=== PATIENT | female | born 1945 | race Caucasian/White ===

== ENCOUNTER → 2017-06-10 | Outpatient (CLI) | payer MEDICARE, OTHER ==
[~2017-06-10] MED LIST: BUPIVACAINE MPF 0.25% 10 ML VIAL. ONE; IOHEXOL 300 MG/ML 50 ML VIAL. ONE; LIDOCAINE 1% PF 30 ML VIAL. ONE; methylPREDNISolone ACETATE 40 MG/ML VIAL. ONE
== END | disposition home or self-care (01) ==
LOC: SURG 13:33
PROVIDERS: ATTEND Anesthesiology
DX: M46.1 Sacroiliitis, not elsewhere classified (principal); M19.91 Primary osteoarthritis, unspecified site; K21.9 Gastro-esophageal reflux disease without esophagitis; Z98.890 Other specified postprocedural states
CPT/HCPCS: G0260; J1030; J2001; J3490; Q9967

== ENCOUNTER → 2018-10-29 | Outpatient (CLI) | payer MEDICARE, OTHER ==
--- NOTE | 2018-10-30 08:55 | RAD ---
Chest, PA and Lateral: Technique: PA and lateral views of the chest were obtained. History: Productive cough. Comparison: None. Findings: The heart size appear within normal limits. Minimal bibasilar lung airspace opacities.. The pleural margins are clear. Spinal stimulator lead projects in the midthoracic spine level. Impression: Minimal bibasilar lung opacities likely interstitial infiltrates or atelectasis.. Electronically signed by: Cl Singh MD (10/30/2018 8:52 AM) [id number]
== END | disposition home or self-care (01) ==
LOC: DXRAD 17:26
PROVIDERS: ATTEND Registered Nurse
DX: R05 Cough (principal); R91.8 Other nonspecific abnormal finding of lung field
CPT/HCPCS: 71046

== ENCOUNTER → 2019-01-20 | Outpatient (CLI) | payer MEDICARE ==
--- NOTE | 2019-01-20 13:35 | RAD ---
Thyroid ultrasound, 01/20/2019: HISTORY: Neck mass The right lobe of the gland measures 4.8 x 2.0 x 1.6 cm while the left lobe of the gland measures 5.6 x 1.2 x 0.9 cm. There are several tiny subcentimeter lesions in the left lobe which probably represent a combination of simple and colloid cysts. There is a 5.1 x 3.8 x 2.9 cm solid mass in the lower neck on the right which cannot be from the lower pole the right lobe of the thyroid gland. It probably arises from the thyroid gland, however, that cannot be stated with certainty. Its margins appear smooth. No internal calcifications are evident. IMPRESSION: Solid right lower neck mass which probably arises from the right thyroid lobe. CT scanning is suggested for better delineation of this process. Ultimately, ultrasound-guided biopsy will probably be indicated. Electronically signed by: Fabian Everett MD (01/20/2019 1:32 PM) [facility]
== END | disposition home or self-care (01) ==
LOC: US 10:45
PROVIDERS: ATTEND Registered Nurse
DX: R22.1 Localized swelling, mass and lump, neck (principal)
CPT/HCPCS: 76536

== ENCOUNTER → 2019-07-28 | Outpatient (CLI) | payer MEDICARE, OTHER ==
--- NOTE | 2019-07-28 12:46 | RAD ---
EXAM: Dual energy x-ray absorptiometry (DEXA). HISTORY: Postmenopausal female presents for osteoporosis screening. COMPARISON: 02/02/2008. TECHNIQUE: Dual energy x-ray absorptiometry of the lumbar spine and right hip was performed. Calculation of bone mineral density based on standard deviations above or below the expected young adult normal value (T-score) was completed. FINDINGS: The average bone mineral density in the 1st through 4th lumbar vertebrae is 1.752 g/cmxcm, corresponding with a T-score of 4.8. There has been a 2.3% increase in density of the lumbar spine compared to the prior study. The average total bone mineral density in the right hip is 0.763 g/cmxcm, corresponding with a T-score of -1.6. There has been a 9.4% decrease in density of the right hip compared to the prior study. IMPRESSION: 1. Osteopenia measured at the right hip. 2. Normal bone mineral density measured at the lumbar spine. Note: Definitions established by the World Health Organization: 1. Normal: T-score is -1.0 or above. 2. Osteopenia: T-score is between -1.0 and -2.5 . 3. Osteoporosis: T-score is -2.5 or below. Electronically signed by: Florecita Rudd MD (07/28/2019 12:42 PM) [place] [id number]
--- NOTE | 2019-07-28 15:18 | RAD ---
CHEST PA LATERAL Clinical indications: Persistent cough. COMPARISON: October 29, 2018. Findings: Small right middle lobe infiltrate or atelectasis is seen. Left lung field is clear. No pleural effusion or pneumothorax is seen. Small hiatal hernia is evident. The heart size, pulmonary vasculature, mediastinum and both shelton are otherwise unremarkable. Scoliosis is seen. Impression: Right middle lobe lung infiltrate or atelectasis. Small hiatal hernia. Electronically signed by: Paul Gan MD (07/28/2019 3:15 PM) [facility]
--- NOTE | 2019-07-28 15:27 | RAD ---
EXAM: Abdomen sonogram. HISTORY: Elevated alkaline phosphatase. TECHNIQUE: Sonographic imaging of the abdomen was performed. COMPARISON: None. FINDINGS: The liver is normal in size. No focal hepatic lesion is seen. The common bile duct is normal in caliber. The gallbladder is unremarkable. The right kidney measures 8.6 cm [id number]. There is a 1.2 cm exophytic cyst within the right kidney. The pancreas is unremarkable. The aorta and inferior vena cava are unremarkable. IMPRESSION: 1. Small simple appearing right renal cyst. 2. Otherwise, unremarkable abdomen sonogram. Electronically signed by: Florecita Rudd MD (07/28/2019 3:24 PM) [id number]
== END | disposition home or self-care (01) ==
LOC: US 09:31
PROVIDERS: ATTEND Registered Nurse
DX: N28.1 Cyst of kidney, acquired (principal); K44.9 Diaphragmatic hernia without obstruction or gangrene; M41.84 Other forms of scoliosis, thoracic region; M85.88 Other specified disorders of bone density and structure, other site; Z78.0 Asymptomatic menopausal state
CPT/HCPCS: 71046; 76705; 77080

== ENCOUNTER → 2019-10-13 | Outpatient (CLI) | payer MEDICARE, OTHER ==
--- NOTE | 2019-10-13 15:05 | RAD ---
L-spine 3 views INDICATION: Back pain and hip pain FINDINGS: AP, lateral and coned-down lateral views of the lumbar spine show 5 lumbar type vertebrae in reversal of normal lordosis and subtle retrolisthesis of L4 on L5 and anterolisthesis of L5 on S1. The AP view shows rightward convexity scoliotic curvature of the lumbar spine with apex at L2 1 Zeng angle of 19 degrees as measured from the superior endplate of L1 to the superior endplate of L5. The bones are demineralized but no acute fracture or aggressive appearing osseous lesions identified. There is marked disc space narrowing throughout the lumbar spine with relative sparing at L4-L5 where anterior disc space widening is present. This could reflect relative preservation of the anterior disc space rather than pathologic widening of the disc space. The combination of disc degenerative change and facet hypertrophy results in variable bony foraminal stenosis most conspicuous at L4-L5 and L5-S1 levels. Soft tissues demonstrate presence of a left neurostimulator with generator in the left posterior paraspinal soft tissues and leads extending cephalad into the thoracic spine and beyond the [id number]. Visualized pelvis is unremarkable. IMPRESSION: Multilevel lumbar spinal degenerative spondylosis with dextroscoliosis and reversal of normal lumbar lordosis likely resulting in varying degrees of foraminal stenosis on possible surgical stenosis which would be better evaluated if clinically warranted with myelographic technique on CT. PROCEDURE: HIP RIGHT 2V WITH PELVIS, LUMBAR SPINE 2-3V STUDY DATE: 10/13/2019 CLINICAL INDICATION / HISTORY: Right hip pain. No known injury.. TECHNIQUE: AP and frog-leg lateral views of the right hip along with an AP view of the pelvis were obtained. COMPARISON: L-spine x-rays of the same day FINDINGS: The osseous structures are normally mineralized. There is normal bony alignment present in the pelvis with the femoral heads well-seated within the acetabuli. There is no evidence of acute fracture or dislocation identified. The overlying soft tissues are grossly unremarkable. Incidental degenerative changes in the lumbar spine and spinal stimulator generator in the left posterior paraspinal soft tissues noted. IMPRESSION: Unremarkable examination of the right hip. Electronically signed by: Amanuel Cordero MD (10/13/2019 3:03 PM) [id number]
== END | disposition home or self-care (01) ==
LOC: PMG 10:38
PROVIDERS: ATTEND Registered Nurse
DX: M47.816 Spondylosis without myelopathy or radiculopathy, lumbar region (principal); M41.86 Other forms of scoliosis, lumbar region; M48.07 Spinal stenosis, lumbosacral region
CPT/HCPCS: 72100; 73502

== ENCOUNTER → 2019-12-14 | Outpatient (CLI) | payer MEDICARE, OTHER ==
--- NOTE | 2019-12-14 11:04 | RAD ---
EXAM: Lumbar spine CT without contrast. HISTORY: Lower back pain. TECHNIQUE: Computed tomographic images of the lumbar spine were obtained without contrast. Multiplanar reformatting was performed. *One or more of the following individualized dose reduction techniques were utilized for this examination: 1. Automated exposure control. 2. Adjustment of the mA and/or kV according to patient size. 3. Use of iterative reconstruction technique. COMPARISON: None. FINDINGS: There is moderate lumbar dextroscoliosis centered at L2. There is slight rightward lateral translation of L2 on L3 and L3 on L4. There is mild retrolisthesis of L2 on L3 and L3 on L4 and L4 and L5. There is grade 1 anterolisthesis of L5 on S1, measuring 5 mm with associated bilateral pars interarticularis defects. There is degenerative endplate remodeling with disc space narrowing, osteophytosis and Schmorl's node formation primarily along the left aspect of L1-L2 and bilaterally at L3-L4. No acute fracture is seen. There is a catheter or lead extending into the dorsal aspect of the central canal at L1-L2. This extends cephalad beyond the [id number]. There is a moderate hiatal hernia. There is basilar atelectasis. There is a 2.2 cm slightly hyperdense lesion along the anterior lower mid zone of the left kidney. There is colonic diverticulosis. The sacroiliac joints are intact. At L1-L2, there is a a left lateral predominant disc bulge and endplate osteophytosis. There is moderate left facet arthropathy. There is mild right and moderate to severe left foraminal stenosis. There is suspected narrowing of the left lateral recess. At L2-L3, there is a left lateral predominant disc bulge and endplate osteophytosis. There is mild left facet arthropathy. There is mild retrolisthesis. There is severe left foraminal stenosis. There is narrowing of the left lateral recess. At L3-L4, there is a diffuse disc bulge and endplate osteophytosis. There is mild retrolisthesis. There is moderate right and severe left foraminal stenosis. At L4-L5, there is a disc bulge and endplate remodeling. There is severe facet arthropathy. There is retrolisthesis. There is moderate right foraminal stenosis. At L5-S1, there is a diffuse disc bulge and endplate osteophytosis. There is grade 1 anterolisthesis with bilateral pars defects. There is severe right and mild left foraminal stenosis. IMPRESSION: 1. Multilevel degenerative change throughout the lumbar spine, described in detail above. This is associated with mild right and moderate to severe left foraminal stenosis at L1-L2, severe left foraminal stenosis at L2-L3, moderate right and severe left foraminal stenosis at L3-L4, moderate right foraminal stenosis at L4-L5, and severe right and mild left foraminal stenosis at L5-S1. 2. Lumbar sclerosis and multilevel listhesis, including grade 1 anterolisthesis with associated pars interarticularis defects at L5-S1. 3. 2.1 cm slightly hyperdense lesion within the left kidney. This may be a hemorrhagic cyst or solid neoplasm. Correlate with a renal sonogram or a renal protocol CT or MRI. Electronically signed by: Florecita Rudd MD (12/14/2019 11:01 AM) [id number]
== END | disposition home or self-care (01) ==
LOC: CT 10:24
PROVIDERS: ATTEND Registered Nurse
DX: M47.816 Spondylosis without myelopathy or radiculopathy, lumbar region (principal); M51.46 Schmorl's nodes, lumbar region; K44.9 Diaphragmatic hernia without obstruction or gangrene; K57.30 Diverticulosis of large intestine without perforation or abscess without bleeding; M48.07 Spinal stenosis, lumbosacral region
CPT/HCPCS: 72131

== ENCOUNTER → 2019-12-28 | Outpatient (CLI) | payer MEDICARE, OTHER ==
--- NOTE | 2019-12-28 11:59 | RAD ---
EXAM: RENAL COMPLETE BILATERAL 12/28/2019 11:00 AM INDICATION: Left renal lesion. COMPARISON: CT lumbar spine 12/14/2019 TECHNIQUE: Grayscale and color Doppler ultrasound images of the kidneys and bladder. FINDINGS: The right kidney measures 9.2 x 4.2 x 3.7 cm. The left kidney measures 9.0 x 4.0 x 4.3 cm. In the medial aspect of the left kidney, there is a 1.9 x 1.7 x 1.7 cm anechoic exophytic cyst with through transmission. There may be a small amount of internal debris within the cyst. No internal vascularity. There is no solid renal mass identified. In the right kidney, there is a 1.1 x 1.2 x 1.1 cm exophytic anechoic simple cyst with through transmission and no vascularity. There is normal cortical thickness and echogenicity bilaterally. No hydronephrosis. Urinary bladder is normal. Bilateral ureteral jets are visualized. Inferior vena cava is patent at the level of the liver. Abdominal aorta is normal in caliber. IMPRESSION: 1.9 cm simple or minimally complicated exophytic cyst in the mid left kidney. This most likely corresponds with the abnormality seen on recent CT. There is no solid renal mass visualized. Electronically signed by: Bryanna Flood MD (12/28/2019 11:56 AM) [id number]
== END | disposition home or self-care (01) ==
LOC: US 10:33
PROVIDERS: ATTEND Physician Assistant
DX: N28.1 Cyst of kidney, acquired (principal)
CPT/HCPCS: 76770

== ENCOUNTER → 2020-02-15 | Outpatient (CLI) | payer MEDICARE, OTHER ==
--- NOTE | 2020-02-15 16:15 | RAD ---
THYROID ULTRASOUND History: Reason: NON TOXIC SINGLE NODULE / Spl. Instructions: / History: Comparison: January 20, 2019. Technique: Multiple grayscale and color Doppler images of the thyroid gland were obtained. Findings: Prior right thyroidectomy. Left thyroid lobe: 4.6 x 1.7 x 1.2 cm. Homogeneous echotexture. Isthmus: 0.3 cm. Small left thyroid colloid cysts. TI-RADS 1. Unchanged compared to prior. ACR Thyroid Imaging, Reporting And Data System (TI-RADS): White Paper Of The ACR TI-RADS Committee. Journal of the [employer], volume 14, issue 5, pages 587-595 (December 2016). IMPRESSION: 1. Prior right thyroidectomy. 2. Small left thyroid colloid cysts. Electronically signed by: Boo Parrish DO (02/15/2020 4:12 PM) [id number]
== END ==
LOC: US 12:48
PROVIDERS: ATTEND Otolaryngology
DX: E04.1 Nontoxic single thyroid nodule (principal); E89.0 Postprocedural hypothyroidism
CPT/HCPCS: 76536

== ENCOUNTER → 2020-05-29 | Outpatient (CLI) | payer MEDICARE, OTHER ==
--- NOTE | 2020-06-02 08:33 | RAD ---
DATE: 05/29/2020 EXAM: MAMMO MEL SCREENING BILATERAL HISTORY: Screening COMPARISON: 03/02/2019, 01/09/2018, 11/18/2016 This study was interpreted with the benefit of Computerized Aided Detection (CAD). Breast Density: SCATTERED The breast parenchyma shows scattered fibroglandular densities. Breast parenchyma level B. FINDINGS: No mass, suspicious calcification, or architectural distortion in either breast. There are benign calcifications, unchanged IMPRESSION: No evidence of malignancy. BI-RADS CATEGORY: 2 BENIGN FINDING(S) RECOMMENDED FOLLOW-UP: 12M 12 MONTH FOLLOW-UP PQRS compliance statement: Patient information was entered into a reminder system with a target due date for the next mammogram. Mammography is a sensitive method for finding small breast cancers, but it does not detect them all and is not a substitute for careful clinical examination. A negative mammogram does not negate a clinically suspicious finding and should not result in delay in biopsying a clinically suspicious abnormality. "Our facility is accredited by the [employer] Mammography Program."
== END ==
LOC: MAMMO 14:52
PROVIDERS: ATTEND Physician Assistant
DX: Z12.31 Encounter for screening mammogram for malignant neoplasm of breast (principal); N64.89 Other specified disorders of breast
CPT/HCPCS: 77063; 77067

== ENCOUNTER → 2021-04-05 | Outpatient (CLI) | payer MEDICARE, OTHER ==
--- NOTE | 2021-04-05 12:41 | RAD ---
EXAM: Abdomen, 2 views. HISTORY: Pain and bloating. COMPARISON: None. FINDINGS: Upright and supine views of the abdomen are obtained. There is a small of gas and stool wit hin the colon. No abnormally dilated loop of bowel is seen. There is no free air. There is scoliosis and degenerative change throughout the lumbar spine. There is a dorsal column stimulator generator wi thin the left flank with leads extending to the mid thoracic level. IMPRESSION: Nonobstructive bowel gas pattern. Electronically signed by: Florecita Rudd MD (04/05/2021 12:38 PM) [id number]
== END ==
LOC: RAD 12:17
PROVIDERS: ATTEND Physician Assistant
DX: R10.30 Lower abdominal pain, unspecified (principal); R14.0 Abdominal distension (gaseous); M47.816 Spondylosis without myelopathy or radiculopathy, lumbar region; M41.86 Other forms of scoliosis, lumbar region
CPT/HCPCS: 74019

== ENCOUNTER → 2021-06-18 | Outpatient (CLI) | payer MEDICARE, OTHER ==
--- NOTE | 2021-06-18 14:26 | RAD ---
Bilateral digital screening 2-D and 3-D (tomosynthesis) mammogram: Reason for examination: Routine screening. Comparison is made to previous mammograms from 05/29/2020 and 03/02/2019. Bilateral mammograms in CC and oblique projections were obtained with 2-D imaging and 3-D tomosynthes is imaging and reviewed on the workstation. Interpretation was made with the benefit of CAD. Findings: Breast density: Category C. The breasts are heterogeneously dense, which may obscure small masses. There are no new suspicious masses, malignant appearing calcifications or architectural distortion. Impression: No evidence of malignancy. ASSESSMENT: BI-RADS 1. Recommendations: Routine screening mammograms. This patient's information has been entered into a reminder system for the patient to be notified wit h the results of her examination and a target date for the next mammogram. Your patient's mammogram demonstrates that she has dense breast tissue (breast density category C or D), which could hide abnormalities, and if she has other risk factors for breast cancer that have bee n identified, she might benefit from supplemental screening tests that may be suggested by you as her ordering physician. Dense breast tissue, in and of itself, is a relatively common condition. Therefo re, this information is not provided to cause undue concern, but rather to raise your awareness and t o promote discussion with your patient regarding the presence of other risk factors, in addition to d ense breast tissue. Electronically signed by: Dolly Delgado MD (06/18/2021 2:24 PM) [id number]
== END ==
LOC: MAMMO 09:31
DX: Z12.31 Encounter for screening mammogram for malignant neoplasm of breast (principal)
CPT/HCPCS: 77063; 77067